=== PATIENT | male | born 1995 | race Caucasian/White ===

== ENCOUNTER 2017-05-07 21:48 | Emergency (ER) | payer OTHER ==
[~2017-05-07] VITALS: Ht 154.9 cm; Wt 75.0 kg
[2017-05-07 22:01] VITALS: TEMP 98.1
[2017-05-07] MEDS ORDERED: PROZAC40 MG PO (22:03)
[2017-05-08] MEDS ORDERED: AMOXICILLIN 50500 MG PO (01:40)
[2017-05-08 02:06] VITALS: BP 130/70; PULSE 80
== END 2017-05-08 02:05 | disposition home or self-care (01) ==
LOC: COL.ER 21:48
DX: H66.91 Otitis media, unspecified, right ear (principal); H61.23 Impacted cerumen, bilateral; F32.9 Major depressive disorder, single episode, unspecified